=== PATIENT | male | born 1975 | race Asian ===

== ENCOUNTER 2019-10-06 12:05 | Day surgery (SDC) | payer OTHER ==
[~2019-10-06] VITALS: Ht 172.7 cm; Wt 76.7 kg
[~2019-10-06 12:05] MED LIST: ALL DAY ALLERGY10 M3 PO; DOCUSATE SODIU100 MG PO; HYDROCHLOROTHIA25 MG PO; LISINOPRIL10 MG PO; MINIPRESS1 MG PO; PAXIL40 MG PO; TRAZODONE HCL50 MG PO
[2019-10-06] MEDS ORDERED: NORVASC5 MG PO (12:23)
[2019-10-06] MEDS ORDERED: REMERON15 M1 PO (12:25)
[2019-10-06] MEDS ORDERED: OMEPRAZOLE20 MG PO (12:25)
--- NOTE | 2019-10-06 14:03 | NUR ---
10/06/19 1403 Gia Carmen 1358- PT ARRIVES TO PACU EASILY AROUSABLE TO VOICE. RESP EVEN AND UNLABORED. OXYGEN SAT HIGH 90'S TO 100% ON 3L VIA NC. GUARDS X2 AT THE BEDSIDE. 1402- OXYGEN TITRATED OFF.
--- NOTE | 2019-10-07 11:54 | OR ---
[facility] [address] [place], [place] [address] Signed DATE OF OPERATION: 10/06/2019 SURGEON: Rashad Fierro MD PREOPERATIVE DIAGNOSES: 1. Enigmatic thrombocytopenia, assess for esophageal varices. 2. Episodic rectal bleeding, family history of colon cancer (father). POSTOPERATIVE DIAGNOSES: 1. Diffuse gastritis with duodenitis. 2. Positive CLOtest consistent with H pylori infection. No evidence of varices. 3. Normal colon to cecum. PROCEDURE: 1. Esophagogastroduodenoscopy with biopsy. 2. Total colonoscopy to cecum. ANESTHESIA: Intravenous sedation with fentanyl 150 mcg, Versed 6 mg. INDICATION: This 44-year-old dark-skinned man is a prisoner at [facility] and a patient of Dr. Lopez. He was identified as having thrombocytopenia for reasons that are uncertain. His platelet count has been 62,000. He is noted to have no evidence of anemia. His hematocrit is 41.4, white count 3.9. He was initially referred for colonoscopy on the basis of family history of colon cancer in his father. He has had some episodic rectal bleeding and fatigue. Additionally, he has joint pain, for which he takes diclofenac. He is admitted at this time to undergo upper endoscopy to assess for possible portal hypertension. His thrombocytopenia may be idiopathic (idiopathic thrombocytopenia purpura) or may be related to occult liver disease with secondary splenomegaly and portal hypertension. That is uncertain. The risks of upper endoscopy reviewed with him. He understands and wished to proceed. Additionally, given his rectal bleeding and family history of colon cancer, colonoscopy has been recommended as well. Risks of bleeding, infection, and perforation related to that procedure are also reviewed. FINDINGS: Upper endoscopy showed no evidence of esophageal varices. There was no esophagitis, though he did have a small hiatal hernia. There was diffuse gastritis and duodenitis. CLOtest ultimately was positive consistent with H pylori infection. Electronically Signed By: RASHAD FIERRO MD 10/07/19 1154 PATIENT NAME: NORIS SMITH OPERATIVE REPORT DATE OF : 71 REPORT #: [id number] PHYSICIAN: RASHAD FIERRO MD PCP: JAMESON LOPEZ MD REPORT IS CONFIDENTIAL AND NOT TO BE RELEASED WITHOUT AUTHORIZATION [facility] [address] [place], [place] [address] Signed On colonoscopy, the prep was good. Complete colonoscopy was undertaken of the cecum, which was normal. DESCRIPTION OF PROCEDURE: The patient was brought to endoscopy suite, given topical Hurricaine spray hypopharyngeal anesthesia and placed in lateral decubitus position. He was given intravenous sedation to the point of slurred speech and nystagmus with full cardiopulmonary monitoring using fentanyl and Versed. Hurricaine hypopharyngeal spray was given initially. A bite block was placed and an Olympus video upper endoscope passed in the hypopharynx. Vocal cords were visualized as normal. Scope was advanced to the esophagus throughout its length and it was normal. There were certainly no varices. Scope was advanced to the stomach, which was insufflated with air. Rugal folds were prominent and there appeared to be diffuse gastritis. Pylorus was normal. There was no sign of deformity or ulcer. Scope was passed into the duodenum, which showed mild chronic duodenitis. Biopsies were obtained. Scope was withdrawn and retroflexed view undertaken showing a small hiatal hernia and proximal gastritis. Indeed, there was gastritis distally as well. Biopsies were taken of the antrum and proximal stomach for both ABA and pathologic testing. Scope was withdrawn to the distal esophagus and it was entirely normal. Careful withdrawal of the scope throughout the esophagus showed no evidence of varices. Scope was then removed. Plans were then made for colonoscopy. Additional sedation was given. Digital rectal examination performed showing no sign of abnormality. An Olympus video colonoscope was passed in the rectum and manipulated throughout the colon, ultimately intubating the cecum. Scope was withdrawn from that point. Irrigation undertaken as necessary. There was no sign of colitis, diverticular formation, polyps, or cancer. Retroflex view was normal as well. The scope was removed. The patient was taken to recovery room in good condition. CONCLUDING DIAGNOSES: 1. 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 2. H pylori associated diffuse gastritis and duodenitis. PLAN: For now, we will treat for H pylori with a triple antibiotic regimen and PPI medication. We will see him back next visit at [facility] term [facility] and review his pathology reports and progress. Electronically Signed By: RASHAD FIERRO MD 10/07/19 1154 PATIENT NAME: NORIS SMITH OPERATIVE REPORT DATE OF : 71 REPORT #: [id number] PHYSICIAN: RASHAD FIERRO MD PCP: JAMESON LOPEZ MD REPORT IS CONFIDENTIAL AND NOT TO BE RELEASED WITHOUT AUTHORIZATION [address] [address] Signed Rashad Fierro MD JM/MODL /[id number] cc: Jameson Lopez MD Copies: JAMESON LOPEZ MD ~ Electronically Signed By: RASHAD FIERRO MD 10/07/19 1154 PATIENT NAME: SARAHAMOSMIGUEL ANGEL Oliveros OPERATIVE REPORT DATE OF : 71 REPORT #: [id number] PHYSICIAN: RASHAD FIERRO MD PCP: JAMESON LOPEZ MD REPORT IS CONFIDENTIAL AND NOT TO BE RELEASED WITHOUT AUTHORIZATION
--- NOTE | 2019-10-07 12:25 | PATH ---
[facility] [address] [place], [place] [address] Signed SPECIMEN(S): A DUODENAL BIOPSY SPECIMEN(S): B PROXIMAL STOMACH BIOPSY SPECIMEN(S): C ANTRUM BIOPSY SPECIMEN SOURCE: A. DUODENAL BIOPSY B. PROXIMAL STOMACH BIOPSY C. ANTRUM BIOPSY CLINICAL HISTORY: Preop: Rectal bleeding, family history of colon CA, thrombocytopenia. Postop: Gastritis, hiatal hernia, duodenitis, normal colon. MICROSCOPIC DESCRIPTION: Histologic sections of all submitted blocks are examined by light microscopy. These findings, together with the gross examination, support the pathologic diagnosis. FINAL PATHOLOGIC DIAGNOSIS: A. Duodenum, biopsy: - Duodenal mucosa with mild increased lamina propria chronic inflammation and Bryant gland hyperplasia. - Negative for dysplasia or malignancy. B. Stomach, proximal, biopsy: - Oxyntic mucosa with chronic, inactive gastritis. - Positive for Helicobacter organisms on HE stain. - Negative for dysplasia or malignancy. C. Stomach, antrum, biopsy: - Antral mucosa with chronic, inactive gastritis. - Positive for Helicobacter organisms on HE stain. - Negative for dysplasia or malignancy. NAL:cml:C2NR GROSS DESCRIPTION: Three specimens are received in three containers, labeled "GT." A. The specimen, labeled "GT, duodenal biopsy," is received in formalin and consists of two, 0.1 and 0.2 cm red-brown tissue fragments. Specimen is entirely submitted in cassette (A1). B. The specimen, labeled "GT, proximal stomach biopsy," is received in formalin and consists of two hobson-brown tissue fragments both measuring 0.2 cm. Specimen is entirely submitted in cassette (B1). C. The specimen, labeled "GT, antrum biopsy," is received in formalin and PATIENT NAME: NORIS SMITH PATHOLOGY DATE OF : 71 REPORT #: [id number] PHYSICIAN: JULEE MCLEAN PCP: TIAN LOPEZ MD REPORT IS CONFIDENTIAL AND NOT TO BE RELEASED WITHOUT AUTHORIZATION [facility] [address] [place], [place] [address] Signed consists of a single 0.4 cm hobson-red tissue fragment. Specimen is entirely submitted in cassette (C1). AM (under the direct supervision of a pathologist) The Gross Description was prepared using a voice recognition system. The report was reviewed for accuracy; however, sound-alike word errors, addition and/or deletions may occur. If there is any question about this report, please contact Client Services. PERFORMING LABORATORY: The technical component was performed by [facility] [address] (Bad Credit Collector: Nia Mcdonald MD; CLIA# [id number]). [facility] [address] [place] [id number] (Bad Credit Collector: Damien Kelly MD; CLIA# [id number]). Diagnostician: Vanessa Kern MD Pathologist Electronically Signed 10/07/2019 Copies: ~ PATIENT NAME: NORIS SMITH PATHOLOGY DATE OF : 71 REPORT #: [id number] PHYSICIAN: JULEE MCLEAN PCP: TIAN LOPEZ MD REPORT IS CONFIDENTIAL AND NOT TO BE RELEASED WITHOUT AUTHORIZATION
== END 2019-10-06 14:42 | disposition home or self-care (01) ==
LOC: DS 12:05 → OPS 12:05 → DS 13:00 → OPS 13:00
PROVIDERS: Surgery
PROC: 0DB78ZX Excision of Stomach, Pylorus, Via Natural or Artificial Opening Endoscopic, Diagnostic (ICD-10-PCS; 2019-10-06)
PROC: 0DJD8ZZ Inspection of Lower Intestinal Tract, Via Natural or Artificial Opening Endoscopic (ICD-10-PCS; 2019-10-06)
PROC: 0DB98ZX Excision of Duodenum, Via Natural or Artificial Opening Endoscopic, Diagnostic (ICD-10-PCS; principal; 2019-10-06 13:00)
PROC: 0DB68ZX Excision of Stomach, Via Natural or Artificial Opening Endoscopic, Diagnostic (ICD-10-PCS; 2019-10-06 13:00)
DX: K29.51 Unspecified chronic gastritis with bleeding (principal); K29.81 Duodenitis with bleeding; D64.9 Anemia, unspecified; F32.9 Major depressive disorder, single episode, unspecified; K21.9 Gastro-esophageal reflux disease without esophagitis; G47.30 Sleep apnea, unspecified; D69.49 Other primary thrombocytopenia; Z80.0 Family history of malignant neoplasm of digestive organs; Z91.041 Radiographic dye allergy status; Z91.013 Allergy to seafood; Z79.899 Other long term (current) drug therapy
CPT/HCPCS: J2250; J3010